=== PATIENT | male | born 1990 | race Two or more races ===

== ENCOUNTER 2024-11-21 20:06 | Emergency (ER) | payer MEDICAID, OTHER ==
[~2024-11-21] VITALS: Ht 175.3 cm; Wt 81.8 kg
[2024-11-21 20:11] VITALS: TEMP 98.8
[2024-11-21 20:22] LABS: COVID AG,FIA SOURCE NASAL SWAB
[2024-11-21 20:41] LABS: INFLUENZA TYPE A NEGATIVE FOR TYPE A (NEGATIVE); INFLUENZA TYPE B NEGATIVE FOR TYPE B (NEGATIVE); SARS-COV2 (COVID) ANTIGEN,FIA Negative (Negative)
[2024-11-21] MEDS ORDERED: ONDA-104 PO (23:05)
[2024-11-21] MEDS: ACETAMINOPHEN 500 MG TABLET PO ONE (23:32)
[2024-11-21 23:35] VITALS: BP 125/78; PULSE 75; RESP 16; O2SAT 98
== END 2024-11-22 01:12 | disposition home or self-care (01) ==
LOC: EMS 20:06
DX: J06.9 Acute upper respiratory infection, unspecified (principal); R05.9 Cough, unspecified; B97.89 Other viral agents as the cause of diseases classified elsewhere; Z20.822 Contact with and (suspected) exposure to COVID-19
CPT/HCPCS: 99283; 87426; 87804; J8540

== ENCOUNTER 2025-01-18 14:52 | Emergency (ER) | payer MEDICAID, OTHER ==
[~2025-01-18] VITALS: Ht 175.3 cm; Wt 81.8 kg
[~2025-01-18 14:52] MED LIST: ONDA-104 PO
[2025-01-18 15:02] VITALS: BP 107/67; PULSE 92; RESP 18; TEMP 98.4; O2SAT 98
[2025-01-18] MEDS ORDERED: CEPH-558 PO (16:24)
== END 2025-01-18 16:51 | disposition home or self-care (01) ==
LOC: EMS 14:52
DX: L03.317 Cellulitis of buttock (principal); Z79.899 Other long term (current) drug therapy; W57.XXXA Bitten or stung by nonvenomous insect and other nonvenomous arthropods, initial encounter
CPT/HCPCS: 99283; Z7502

== ENCOUNTER 2025-01-20 12:03 | Emergency (ER) | payer MEDICAID ==
[~2025-01-20] VITALS: Ht 175.3 cm; Wt 79.5 kg
[~2025-01-20 12:03] MED LIST changes: +CEPH-558 PO
[2025-01-20 12:14] VITALS: TEMP 98.2
[2025-01-20] MEDS: KETOROLAC TROMETHAMINE 30 MG/ML VIAL IM ONE (12:46)
[2025-01-20] MEDS ORDERED: IBUP-1492 PO (14:29)
[2025-01-20] MEDS ORDERED: ACET-2247 PO (14:29)
[2025-01-20 14:49] VITALS: BP 121/71; PULSE 89; RESP 22; O2SAT 100
== END 2025-01-20 15:14 | disposition home or self-care (01) ==
LOC: EMS 13:59
DX: S30.860A Insect bite (nonvenomous) of lower back and pelvis, initial encounter (principal); Z79.899 Other long term (current) drug therapy; W57.XXXA Bitten or stung by nonvenomous insect and other nonvenomous arthropods, initial encounter; Y93.89 Activity, other specified; Y92.89 Other specified places as the place of occurrence of the external cause; Y99.8 Other external cause status
CPT/HCPCS: 99284; 96372; J1885; 99283